=== PATIENT | female | born 1965 | race Caucasian/White ===

== ENCOUNTER 2017-08-01 07:12 | Emergency (ER) | payer MEDICARE, OTHER ==
[~2017-08-01] VITALS: Ht 147.3 cm; Wt 74.8 kg
[~2017-08-01 07:12] MED LIST: ALBU90OI6; ALBU90OI6 INH; AMIT50 PO; AMPDEX10CR; AMPDEX10CR PO; ASPI81CH PO; ATEN25 PO; Amitriptyline100 MG; Aspir 8181 MG; Aspir 8181 MG PO; BENZ100A PO; BUDE6HFA; BUDE6HFA INH; BUDE6HFA PO; BUSP10 PO; BUSP15 PO; CALCA500CH PO; CALCIUM 500 +1 EAC2 PO; CLON.5; CLON.5 PO; CLON1 PO; Crutch1 EACH MISC; DIPH50; DIPH50 PO; ESOM20; GABA800; GABA800 PO; Hair, Skin & N1 EACH; IBUP600 PO; Klonopin0.5 MG PO; LORA1; LORA1 PO; MONT10T; MONT10T PO; MULTI-VITAMIN1 EAC1 PO; MULVITMIND PO; Methylin ER10 MG PO; Naprosyn500 MG PO; Nexium40 MG PO; Norco 5-325 Ta1 EACH PO; OLAN20; OLAN20 MM; Prednisone20 MG PO; QUET200 PO; RIZATRIPTAN10 MG PO; SERT100; SERT100 PO; SIMV40; SIMV40 PO; TIOT18; TOPI100; TOPI100 PO; Zithromax250 MG PO; Zoloft100 MG PO
[2017-08-01] MEDS ORDERED: QUET25 PO (07:35)
[2017-08-01] MEDS ORDERED: Maxalt10 MG PO (07:36)
[2017-08-01] MEDS ORDERED: D3 + K2 Dots 11 EACH PO (07:37)
[2017-08-01] MEDS ORDERED: Advair Hfa 230-12 GM INH (07:38)
== END 2017-08-01 09:10 | disposition left against medical advice (07) ==
LOC: ER 07:12
DX: J44.1 Chronic obstructive pulmonary disease with (acute) exacerbation (principal); J96.91 Respiratory failure, unspecified with hypoxia; F32.9 Major depressive disorder, single episode, unspecified; F41.9 Anxiety disorder, unspecified; Z87.891 Personal history of nicotine dependence; Z88.8 Allergy status to other drugs, medicaments and biological substances; Z91.013 Allergy to seafood; Z79.899 Other long term (current) drug therapy; Z79.51 Long term (current) use of inhaled steroids; Z79.82 Long term (current) use of aspirin
CPT/HCPCS: 36415; 71046; 94762; 96374; 99283; J2930

== ENCOUNTER 2017-12-16 23:29 | Inpatient (IN) | payer MEDICARE, OTHER ==
[~2017-12-16] VITALS: Ht 165.1 cm; Wt 76.1 kg
[~2017-12-16 23:29] MED LIST changes: +Advair Hfa 230-12 GM INH; +D3 + K2 Dots 11 EACH PO; +Macrodantin100 MG PO; +Maxalt10 MG PO; +QUET25 PO; +ZYRTEC10 M1 PO
[2017-12-16 23:50] LABS: Calcium, Ionized (POC) 1.31 mmol/L (1.10-1.46); Chloride (POC) 104 mmol/L (98-108); Creatinine (POC) 0.9 mg/dL (0.6-1.0); Glucose (ISTAT POC) 184 mg/dL (70-99); Potassium (POC) 4.4 mmol/L (3.5-5.5); Sodium (POC) 143 mmol/L (135-148); Total CO2 (POC) 29 mmol/L (21-32)
[2017-12-16 23:53] LABS: BASOPHILS ABSOLUTE AUTO 0.07 K/mm3 (0.00-0.23); BASOPHILS PERCENT AUTO 1 % (0-2); EOSINOPHILS ABSOLUTE AUTO 0.77 K/mm3 (0.00-0.68); EOSINOPHILS PERCENT AUTO 7 % (0-6); Hematocrit 46.2 % (33.0-51.0); Hemoglobin 15.3 g/dL (11.5-16.0); IMMATURE GRAN ABSOLUTE AUTO 0.02 K/mm3 (0.00-0.10); IMMATURE GRAN PERCENT AUTO 0 % (0-1); LYMPHOCYTES PERCENT AUTO 36 % (21-46); MONOCYTES ABSOLUTE AUTO 0.62 K/mm3 (0.16-1.47); MONOCYTES PERCENT AUTO 5 % (4-13); Mean Corpuscular HGB 30.1 pg (26.0-34.0); Mean Corpuscular HGB Conc 33.1 g/dL (31.5-36.5); Mean Corpuscular Volume 91 fL (80-100); Mean Platelet Volume 9.2 fL (9.1-12.4); NEUTROPHILS PERCENT AUTO 51 % (41-73); Platelet Count 313 K/mm3 (150-400); RDW Coefficient Variation 12.1 % (11.7-14.2); RDW Standard Deviation 40.7 fL (35.1-46.3); Red Blood Cell Count 5.08 M/mm3 (3.80-5.20); White Blood Cell Count 11.68 K/mm3 (4.00-11.30)
[2017-12-17 00:04] LABS: International Normalized Ratio 1.01; Prothrombin Time Results 10.4 Sec (9.7-11.5)
[2017-12-17 00:15] LABS: Magnesium, Blood 2.2 mg/dL (1.6-2.4); Troponin I <0.015 ng/mL (0.000-0.040)
[2017-12-17 00:16] LABS: Alanine Aminotransfer (ALT/SGP 28 U/L (12-78); Albumin, Blood 3.7 g/dL (3.4-5.0); Albumin/Globulin Ratio 0.8 (0.8-1.8); Alk Phos 175 U/L (50-136); Anion Gap 6 mmol/L (6-16); Aspartate Aminotrans (AST/SGOT 19 U/L (12-37); Bilirubin, Total 0.2 mg/dL (0.1-1.0); Blood Urea Nitrogen 16 mg/dL (8-24); Bun/Creatinine Ratio 19.1 (12.0-20.0); CO2, Blood 29 mmol/L (21-32); Chloride, Blood 107 mmol/L (98-108); Creatinine, Blood 0.84 mg/dL (0.40-1.00); Globulin, Blood 4.7 g/dL (2.2-4.0); Glomerular Filtration Rate >60 (60-); Glucose, Blood 173 mg/dL (70-99); Potassium, Blood 4.4 mmol/L (3.5-5.5); Sodium, Blood 142 mmol/L (136-145); Total Protein, Blood 8.4 g/dL (6.4-8.2)
[2017-12-17 00:30] LABS: Bicarbonate Venous 21.7 mmol/L (24.0-30.0); PCO2 Venous 75.6 mmHg (38-42); PO2 Venous 75.6 mmHg (38-42); pH Blood Venous 7.17 (7.34-7.37)
[2017-12-17 00:45] LABS: U Amphetamine Screen Not Detected; U Barbituate Screen Not Detected; U Benzodiazapine Screen Not Detected; U Buprenorphine Screen Not Detected; U Cannabinoids Screen DETECTED; U Cocaine Screen Not Detected; U Methadone Screen Not Detected; U Methamphetamine Screen Not Detected; U Opiates Screen Not Detected; U Oxycodone Screen Not Detected; U Phencyclidine Screen Not Detected; U Propoxyphene Screen Not Detected
[2017-12-17 04:05] LABS: BASOPHILS ABSOLUTE AUTO 0.02 K/mm3 (0.00-0.23); BASOPHILS PERCENT AUTO 0 % (0-2); EOSINOPHILS ABSOLUTE AUTO 0.03 K/mm3 (0.00-0.68); EOSINOPHILS PERCENT AUTO 0 % (0-6); Hematocrit 42.5 % (33.0-51.0); Hemoglobin 14.2 g/dL (11.5-16.0); IMMATURE GRAN ABSOLUTE AUTO 0.04 K/mm3 (0.00-0.10); IMMATURE GRAN PERCENT AUTO 0 % (0-1); LYMPHOCYTES PERCENT AUTO 5 % (21-46); MONOCYTES ABSOLUTE AUTO 0.29 K/mm3 (0.16-1.47); MONOCYTES PERCENT AUTO 2 % (4-13); Mean Corpuscular HGB 30.1 pg (26.0-34.0); Mean Corpuscular HGB Conc 33.4 g/dL (31.5-36.5); Mean Corpuscular Volume 90 fL (80-100); Mean Platelet Volume 9.4 fL (9.1-12.4); NEUTROPHILS ABSOLUTE AUTO 11.96 K/mm3 (1.96-9.15); NEUTROPHILS PERCENT AUTO 92 % (41-73); Platelet Count 226 K/mm3 (150-400); RDW Coefficient Variation 12.3 % (11.7-14.2); RDW Standard Deviation 40.3 fL (35.1-46.3); Red Blood Cell Count 4.71 M/mm3 (3.80-5.20); White Blood Cell Count 13.04 K/mm3 (4.00-11.30)
[2017-12-17 04:19] LABS: Anion Gap 9 mmol/L (6-16); Blood Urea Nitrogen 15 mg/dL (8-24); Bun/Creatinine Ratio 16.6 (12.0-20.0); CO2, Blood 25 mmol/L (21-32); Calcium, Blood 8.4 mg/dL (8.5-10.1); Chloride, Blood 108 mmol/L (98-108); Creatinine, Blood 0.91 mg/dL (0.40-1.00); Glomerular Filtration Rate >60 (60-); Glucose, Blood 161 mg/dL (70-99); Potassium, Blood 3.8 mmol/L (3.5-5.5); Sodium, Blood 142 mmol/L (136-145)
[2017-12-17 05:53] LABS: PCO2 Arterial 45.1 mmHg (35-45); PO2 Arterial 77.1 mmHg (80-100); pH Blood Arterial 7.31 (7.35-7.45)
[2017-12-17] MEDS ORDERED: BUDE6HFA INH (16:31)
[2017-12-17] MEDS ORDERED: ALBU90OI INH (16:31)
[2017-12-17] MEDS ORDERED: QUET25 PO (16:32)
[2017-12-17] MEDS ORDERED: TIOT18 INH (16:32)
[2017-12-17] MEDS ORDERED: ESOM20 (16:32)
[2017-12-17] MEDS ORDERED: QUET200 PO (16:33)
[2017-12-17] MEDS ORDERED: AMPDEX10CR PO (16:34)
[2017-12-17] MEDS ORDERED: Neurontin800 MG PO (16:34)
[2017-12-17] MEDS ORDERED: ATEN25 PO (16:35)
[2017-12-17] MEDS ORDERED: CALCIUM 500 MG1 EACH PO (16:35)
[2017-12-17] MEDS ORDERED: DIFL500 PO (16:36)
[2017-12-18 03:47] LABS: BASOPHILS ABSOLUTE AUTO 0.01 K/mm3 (0.00-0.23); BASOPHILS PERCENT AUTO 0 % (0-2); EOSINOPHILS PERCENT AUTO 0 % (0-6); Hematocrit 41.2 % (33.0-51.0); Hemoglobin 13.9 g/dL (11.5-16.0); IMMATURE GRAN ABSOLUTE AUTO 0.04 K/mm3 (0.00-0.10); IMMATURE GRAN PERCENT AUTO 0 % (0-1); LYMPHOCYTES PERCENT AUTO 4 % (21-46); MONOCYTES ABSOLUTE AUTO 0.39 K/mm3 (0.16-1.47); MONOCYTES PERCENT AUTO 3 % (4-13); Mean Corpuscular HGB 30.3 pg (26.0-34.0); Mean Corpuscular HGB Conc 33.7 g/dL (31.5-36.5); Mean Corpuscular Volume 90 fL (80-100); Mean Platelet Volume 9.2 fL (9.1-12.4); NEUTROPHILS ABSOLUTE AUTO 12.48 K/mm3 (1.96-9.15); NEUTROPHILS PERCENT AUTO 92 % (41-73); Platelet Count 236 K/mm3 (150-400); RDW Coefficient Variation 12.6 % (11.7-14.2); RDW Standard Deviation 41.6 fL (35.1-46.3); Red Blood Cell Count 4.58 M/mm3 (3.80-5.20); White Blood Cell Count 13.52 K/mm3 (4.00-11.30)
[2017-12-18 04:10] LABS: Albumin, Blood 2.9 g/dL (3.4-5.0); Anion Gap 8 mmol/L (6-16); Blood Urea Nitrogen 10 mg/dL (8-24); Bun/Creatinine Ratio 14.2 (12.0-20.0); CO2, Blood 24 mmol/L (21-32); Calcium, Blood 8.5 mg/dL (8.5-10.1); Chloride, Blood 115 mmol/L (98-108); Creatinine, Blood 0.71 mg/dL (0.40-1.00); Glomerular Filtration Rate >60 (60-); Glucose, Blood 155 mg/dL (70-99); Potassium, Blood 3.8 mmol/L (3.5-5.5); Sodium, Blood 147 mmol/L (136-145); Troponin I 0.481 ng/mL (0.000-0.040)
[2017-12-19 04:15] LABS: BASOPHILS ABSOLUTE AUTO 0.01 K/mm3 (0.00-0.23); BASOPHILS PERCENT AUTO 0 % (0-2); EOSINOPHILS PERCENT AUTO 0 % (0-6); Hemoglobin 13.5 g/dL (11.5-16.0); IMMATURE GRAN PERCENT AUTO 1 % (0-1); LYMPHOCYTES ABSOLUTE AUTO 0.61 K/mm3 (0.84-5.20); LYMPHOCYTES PERCENT AUTO 5 % (21-46); MONOCYTES ABSOLUTE AUTO 0.29 K/mm3 (0.16-1.47); MONOCYTES PERCENT AUTO 2 % (4-13); Mean Corpuscular HGB 29.9 pg (26.0-34.0); Mean Corpuscular HGB Conc 32.1 g/dL (31.5-36.5); Mean Platelet Volume 10.5 fL (9.1-12.4); NEUTROPHILS ABSOLUTE AUTO 12.06 K/mm3 (1.96-9.15); NEUTROPHILS PERCENT AUTO 92 % (41-73); Platelet Count 193 K/mm3 (150-400); RDW Coefficient Variation 13.4 % (11.7-14.2); Red Blood Cell Count 4.52 M/mm3 (3.80-5.20); White Blood Cell Count 13.07 K/mm3 (4.00-11.30)
[2017-12-19 04:16] LABS: Mean Corpuscular Volume 93 fL (80-100)
[2017-12-19 05:26] LABS: PO2 Arterial 75.8 mmHg (80-100); pH Blood Arterial 7.36 (7.35-7.45)
[2017-12-19 06:15] LABS: Albumin, Blood 2.8 g/dL (3.4-5.0); Anion Gap 8 mmol/L (6-16); Blood Urea Nitrogen 19 mg/dL (8-24); Bun/Creatinine Ratio 25.4 (12.0-20.0); CO2, Blood 22 mmol/L (21-32); Calcium, Blood 8.5 mg/dL (8.5-10.1); Chloride, Blood 118 mmol/L (98-108); Creatinine, Blood 0.75 mg/dL (0.40-1.00); Glomerular Filtration Rate >60 (60-); Glucose, Blood 137 mg/dL (70-99); Magnesium, Blood 2.4 mg/dL (1.6-2.4); Phosphorus, Blood 2.5 mg/dL (2.5-4.9); Potassium, Blood 4.2 mmol/L (3.5-5.5); Sodium, Blood 148 mmol/L (136-145); Troponin I 0.221 ng/mL (0.000-0.040)
[2017-12-19 15:08] LABS: Source, Urine Catheter
[2017-12-19 15:13] LABS: Appearance, Urine Clear (Clear); Bilirubin, Urine Neg (Neg); Blood, Urine 4+ (Neg); Color, Urine Yellow (P-Yellow); Glucose Qualitative, Urine Neg (Neg); Ketones, Urine Neg (Neg); Leukocyte Esterase, Urine Neg (Neg); Nitrite, Urine Neg (Neg); Protein, Urine 1+ (Neg); Urobilinogen, Urine 2+ (Normal)
[2017-12-19 15:24] LABS: Red Blood Cells, Urine 50-100 /hpf (0-2)
[2017-12-19 15:25] LABS: Bacteria Not Seen /hpf; Squamous Epithelial Cells Few /hpf (Few); White Blood Cells, Urine 0-2 /hpf (0-5)
[2017-12-20 04:45] LABS: BASOPHILS PERCENT AUTO 0 % (0-2); EOSINOPHILS PERCENT AUTO 0 % (0-6); Hematocrit 42.5 % (33.0-51.0); Hemoglobin 13.7 g/dL (11.5-16.0); IMMATURE GRAN ABSOLUTE AUTO 0.09 K/mm3 (0.00-0.10); IMMATURE GRAN PERCENT AUTO 1 % (0-1); LYMPHOCYTES ABSOLUTE AUTO 0.63 K/mm3 (0.84-5.20); LYMPHOCYTES PERCENT AUTO 6 % (21-46); MONOCYTES ABSOLUTE AUTO 0.27 K/mm3 (0.16-1.47); MONOCYTES PERCENT AUTO 3 % (4-13); Mean Corpuscular HGB 29.3 pg (26.0-34.0); Mean Corpuscular HGB Conc 32.2 g/dL (31.5-36.5); Mean Corpuscular Volume 91 fL (80-100); Mean Platelet Volume 10.2 fL (9.1-12.4); NEUTROPHILS ABSOLUTE AUTO 9.46 K/mm3 (1.96-9.15); NEUTROPHILS PERCENT AUTO 91 % (41-73); Platelet Count 221 K/mm3 (150-400); RDW Standard Deviation 43.1 fL (35.1-46.3); Red Blood Cell Count 4.67 M/mm3 (3.80-5.20); White Blood Cell Count 10.45 K/mm3 (4.00-11.30)
[2017-12-20 05:10] LABS: Albumin, Blood 2.7 g/dL (3.4-5.0); Anion Gap 10 mmol/L (6-16); Blood Urea Nitrogen 25 mg/dL (8-24); Bun/Creatinine Ratio 35.3 (12.0-20.0); CO2, Blood 23 mmol/L (21-32); Calcium, Blood 8.3 mg/dL (8.5-10.1); Chloride, Blood 112 mmol/L (98-108); Creatinine, Blood 0.71 mg/dL (0.40-1.00); Glomerular Filtration Rate >60 (60-); Glucose, Blood 164 mg/dL (70-99); Phosphorus, Blood 2.6 mg/dL (2.5-4.9); Potassium, Blood 4.1 mmol/L (3.5-5.5); Sodium, Blood 145 mmol/L (136-145)
[2017-12-20 05:11] LABS: PCO2 Arterial 36.6 mmHg (35-45); PO2 Arterial 67.5 mmHg (80-100)
[2017-12-20] MEDS ORDERED: CLON1 PO (14:42)
[2017-12-20] MEDS ORDERED: SEROQUEL PO (14:48)
[2017-12-21 04:00] LABS: BASOPHILS ABSOLUTE AUTO 0.01 K/mm3 (0.00-0.23); BASOPHILS PERCENT AUTO 0 % (0-2); EOSINOPHILS PERCENT AUTO 0 % (0-6); Hematocrit 41.3 % (33.0-51.0); Hemoglobin 13.5 g/dL (11.5-16.0); IMMATURE GRAN ABSOLUTE AUTO 0.08 K/mm3 (0.00-0.10); IMMATURE GRAN PERCENT AUTO 1 % (0-1); LYMPHOCYTES ABSOLUTE AUTO 0.87 K/mm3 (0.84-5.20); LYMPHOCYTES PERCENT AUTO 8 % (21-46); MONOCYTES ABSOLUTE AUTO 0.35 K/mm3 (0.16-1.47); MONOCYTES PERCENT AUTO 3 % (4-13); Mean Corpuscular HGB 29.7 pg (26.0-34.0); Mean Corpuscular HGB Conc 32.7 g/dL (31.5-36.5); Mean Corpuscular Volume 91 fL (80-100); Mean Platelet Volume 9.4 fL (9.1-12.4); NEUTROPHILS ABSOLUTE AUTO 10.31 K/mm3 (1.96-9.15); NEUTROPHILS PERCENT AUTO 89 % (41-73); Platelet Count 246 K/mm3 (150-400); RDW Coefficient Variation 12.7 % (11.7-14.2); RDW Standard Deviation 42.3 fL (35.1-46.3); Red Blood Cell Count 4.54 M/mm3 (3.80-5.20); White Blood Cell Count 11.62 K/mm3 (4.00-11.30)
[2017-12-21 04:17] LABS: Anion Gap 7 mmol/L (6-16); Blood Urea Nitrogen 21 mg/dL (8-24); Bun/Creatinine Ratio 29.7 (12.0-20.0); CO2, Blood 26 mmol/L (21-32); Calcium, Blood 8.4 mg/dL (8.5-10.1); Chloride, Blood 111 mmol/L (98-108); Creatinine, Blood 0.71 mg/dL (0.40-1.00); Glomerular Filtration Rate >60 (60-); Glucose, Blood 124 mg/dL (70-99); Potassium, Blood 3.8 mmol/L (3.5-5.5); Sodium, Blood 144 mmol/L (136-145)
[2017-12-21 05:35] LABS: PCO2 Arterial 33.8 mmHg (35-45); PO2 Arterial 80.9 mmHg (80-100); pH Blood Arterial 7.41 (7.35-7.45)
[2017-12-22] MEDS ORDERED: AMLO5 PO (09:48)
[2017-12-22] MEDS ORDERED: MOME220I INH (09:49)
[2017-12-22] MEDS ORDERED: TOPI100 PO (09:49)
[2017-12-22] MEDS ORDERED: PRED10 PO (10:02)
== END 2017-12-22 10:24 | disposition home or self-care (01) | DRG 208 ==
LOC: ER 23:29 → ICUW 12-17 00:18 → ICUE 12-17 00:18
PROVIDERS: Emergency Medicine; Family Medicine; Internal Medicine Critical Care Medicine
PROC: 0BH17EZ Insertion of Endotracheal Airway into Trachea, Via Natural or Artificial Opening (ICD-10-PCS; principal; 2017-12-17)
PROC: 5A1945Z Respiratory Ventilation, 24-96 Consecutive Hours (ICD-10-PCS; 2017-12-17)
DX: J44.1 Chronic obstructive pulmonary disease with (acute) exacerbation (principal); J96.01 Acute respiratory failure with hypoxia; G92 Toxic encephalopathy; I60.9 Nontraumatic subarachnoid hemorrhage, unspecified; J96.02 Acute respiratory failure with hypercapnia; E87.0 Hyperosmolality and hypernatremia; J45.901 Unspecified asthma with (acute) exacerbation; T42.4X5A Adverse effect of benzodiazepines, initial encounter; Y92.239 Unspecified place in hospital as the place of occurrence of the external cause; R56.9 Unspecified convulsions; I10 Essential (primary) hypertension; F43.10 Post-traumatic stress disorder, unspecified; F60.3 Borderline personality disorder; F32.9 Major depressive disorder, single episode, unspecified; F17.210 Nicotine dependence, cigarettes, uncomplicated
CPT/HCPCS: 31500; 31720; 36415; 36600; 51702; 70450; 71045; 80047; 80048; 80053; 80069; 81001; 82803; 82947; 83605; 83735; 83880; 84145; 84443; 84484; 85014; 85025; 85610; 87040; 87070; 87077; 87147; 87186; 87205; 93005; 93010; 93306; 94002; 94003; 94640; 94760; 96361; 96374; 96375; 97116; 97161; 99291-25; C1751; C9113; G8978; G8979; J0330; J0360; J1650; J1940; J1956; J2001; J2060; J2930; J3010; J3475; J7030; J7040

== ENCOUNTER 2019-03-19 12:02 | Emergency (ER) | payer MEDICARE, OTHER ==
[~2019-03-19] VITALS: Ht 147.3 cm; Wt 77.1 kg
[~2019-03-19 12:02] MED LIST changes: +ALBU4ER; +ALBU90OI; +ALBU90OI INH; +ALBU90OI61; +AMLO5 PO; +CALCIUM 500 MG1 EACH PO; +Cheratussin AC118 ML PO; +DIFL500 PO; +DULERA 200 MCG/13 GM INH; +MOME220I INH; +Neurontin800 MG PO; +PRED10 PO; +Prednisone50 MG PO; +SEROQUEL PO; +TIOT18 INH; +TOPIRAMATE; +ZOLP5
[2019-03-19] MEDS ORDERED: Neurontin 300300 MG PO (16:00)
[2019-03-19] MEDS ORDERED: HYDR1TAB94 PO (16:00)
== END 2019-03-19 16:17 | disposition home or self-care (01) ==
LOC: ER 12:02
DX: M54.16 Radiculopathy, lumbar region (principal); M54.41 Lumbago with sciatica, right side; G89.29 Other chronic pain; F32.9 Major depressive disorder, single episode, unspecified; F41.9 Anxiety disorder, unspecified; F43.10 Post-traumatic stress disorder, unspecified; J44.9 Chronic obstructive pulmonary disease, unspecified; Z88.8 Allergy status to other drugs, medicaments and biological substances; Z91.013 Allergy to seafood; Z79.899 Other long term (current) drug therapy; Z79.82 Long term (current) use of aspirin; Z79.52 Long term (current) use of systemic steroids; Z87.891 Personal history of nicotine dependence
CPT/HCPCS: 99283; A9270-GY

== ENCOUNTER 2019-12-10 15:56 | Emergency (ER) | payer MEDICARE, OTHER ==
[~2019-12-10] VITALS: Ht 147.3 cm; Wt 79.4 kg
[~2019-12-10 15:56] MED LIST changes: +HYDR1TAB94 PO; +Neurontin 300300 MG PO
[2019-12-10] MEDS ORDERED: Norco 5-325 Ta1 EACH PO (17:44)
[2019-12-10] MEDS ORDERED: Crutch1 EACH MISC (17:46)
== END 2019-12-10 18:04 | disposition home or self-care (01) ==
LOC: ER 15:56
DX: S82.65XA Nondisplaced fracture of lateral malleolus of left fibula, initial encounter for closed fracture (principal); F32.9 Major depressive disorder, single episode, unspecified; F41.9 Anxiety disorder, unspecified; J44.9 Chronic obstructive pulmonary disease, unspecified; F43.10 Post-traumatic stress disorder, unspecified; J45.909 Unspecified asthma, uncomplicated; F17.210 Nicotine dependence, cigarettes, uncomplicated; Z91.013 Allergy to seafood; Z88.8 Allergy status to other drugs, medicaments and biological substances; Z88.1 Allergy status to other antibiotic agents; Z79.899 Other long term (current) drug therapy; X50.1XXA Overexertion from prolonged static or awkward postures, initial encounter; Y92.039 Unspecified place in apartment as the place of occurrence of the external cause
CPT/HCPCS: 29515; 73610; 96372-59; 99283-25; J1170; J1885

== ENCOUNTER → 2020-04-02 | Outpatient (CLI) | payer MEDICARE, OTHER ==
[2020-04-07 14:11] LABS: HPV 16 Negative (Negative); HPV 18 Negative (Negative); HPV OTHER HR TYPES Negative (Negative)
== END | disposition home or self-care (01) ==
LOC: PLD 10:40
PROVIDERS: Physician Assistant
DX: Z01.419 Encounter for gynecological examination (general) (routine) without abnormal findings (principal)
CPT/HCPCS: 87624; G0123

== ENCOUNTER 2020-05-14 07:48 | Day surgery (SDC) | payer MEDICARE, OTHER ==
[~2020-05-14] VITALS: Ht 147.3 cm; Wt 84.9 kg
--- NOTE | 2020-05-14 08:25 | NUR ---
Ambulatory in Day Surgery Patient states colon prep results clear. History, Chart, Medications and Allergies reviewed before start of procedure. Patient confirms NPO status and agrees with scheduled surgery.
--- NOTE | 2020-05-14 08:44 | NUR ---
05/14/20 0844 Ja [place]am[place] History, Chart, Medications and Allergies reviewed before start of procedure.MONITOR INTACT WITH CONTINUOUS PULSE OXIMETRY AND INTERMITTENT BP.3-LEAD EKG REVIEWED WITH PHYSICIAN PRIOR TO START OF PROCEDURE.O2 VIA N/C INTACT THROUGHOUT SEDATION/PROCEDURE. PATIENT DETERMINED TO BE ASA APPROPRIATE FOR PROPOFOL SEDATION PRIOR TO START OF PROCEDURE BY DR. EMERSON.
--- NOTE | 2020-05-14 09:32 | NUR ---
Patient up to Ambulate independently. Gait steady. Discharge instructions reviewed with patient. Patient verbalizes understanding. Copy given to patient to take home. Discharged via wheelchair to private car for ride home WITH FRIEND
== END 2020-05-14 22:49 | disposition home or self-care (01) ==
LOC: ORSCMMR 07:48 → ORD 08:30 → ORSCMMR 08:30
PROVIDERS: Internal Medicine Gastroenterology
PROC: 0DBH8ZX Excision of Cecum, Via Natural or Artificial Opening Endoscopic, Diagnostic (ICD-10-PCS; principal; 2020-05-14 08:30)
DX: Z12.11 Encounter for screening for malignant neoplasm of colon (principal); J44.9 Chronic obstructive pulmonary disease, unspecified; E78.00 Pure hypercholesterolemia, unspecified; F32.9 Major depressive disorder, single episode, unspecified; F41.9 Anxiety disorder, unspecified; F43.10 Post-traumatic stress disorder, unspecified; K21.9 Gastro-esophageal reflux disease without esophagitis; Z79.82 Long term (current) use of aspirin; Z79.51 Long term (current) use of inhaled steroids; Z79.899 Other long term (current) drug therapy; Z87.891 Personal history of nicotine dependence
CPT/HCPCS: 88305; J2250; J2704; J7120

== ENCOUNTER → 2021-03-17 | Outpatient (CLI) | payer MEDICARE, OTHER ==
[2021-03-17 19:32] LABS: BASOPHILS ABSOLUTE AUTO 0.08 K/mm3 (0.00-0.23); BASOPHILS PERCENT AUTO 1 % (0-2); EOSINOPHILS ABSOLUTE AUTO 0.23 K/mm3 (0.00-0.68); EOSINOPHILS PERCENT AUTO 2 % (0-6); Hematocrit 46.2 % (33.0-51.0); Hemoglobin 15.2 g/dL (11.5-16.0); IMMATURE GRAN ABSOLUTE AUTO 0.03 K/mm3 (0.00-0.10); IMMATURE GRAN PERCENT AUTO 0 % (0-1); LYMPHOCYTES ABSOLUTE AUTO 2.15 K/mm3 (0.84-5.20); LYMPHOCYTES PERCENT AUTO 22 % (21-46); MONOCYTES ABSOLUTE AUTO 0.54 K/mm3 (0.16-1.47); MONOCYTES PERCENT AUTO 6 % (4-13); Mean Corpuscular HGB 29.3 pg (26.0-34.0); Mean Corpuscular HGB Conc 32.9 g/dL (31.5-36.5); Mean Corpuscular Volume 89 fL (80-100); Mean Platelet Volume 9.7 fL (9.1-12.4); NEUTROPHILS ABSOLUTE AUTO 6.72 K/mm3 (1.96-9.15); NEUTROPHILS PERCENT AUTO 69 % (41-73); Platelet Count 355 K/mm3 (150-400); RDW Standard Deviation 39.7 fL (35.1-46.3); Red Blood Cell Count 5.19 M/mm3 (3.80-5.20); White Blood Cell Count 9.75 K/mm3 (4.00-11.30)
== END | disposition home or self-care (01) ==
LOC: LAB 15:00 → LAB SHORT 15:00
PROVIDERS: Physician Assistant
DX: D72.829 Elevated white blood cell count, unspecified (principal)
CPT/HCPCS: 85025

== ENCOUNTER 2021-04-05 07:33 | Emergency (ER) | payer MEDICARE, OTHER ==
[~2021-04-05] VITALS: Ht 147.3 cm; Wt 83.9 kg
[2021-04-05 08:02] LABS: Source, Urine Clean Catch
[2021-04-05 08:22] LABS: Appearance, Urine Hazy (Clear); Blood, Urine 5+ (Neg); Color, Urine Yellow (P-Yellow); Glucose Qualitative, Urine Neg (Neg); Ketones, Urine 1+ (Neg); Leukocyte Esterase, Urine 1+ (Neg); Nitrite, Urine Neg (Neg); Protein, Urine 3+ (Neg); Urobilinogen, Urine 2+ (Normal)
[2021-04-05 08:44] LABS: Bilirubin, Urine 1+ (Neg)
[2021-04-05 08:45] LABS: Bacteria Few /hpf; Calcium Oxalate Crystals Many /hpf; Mucus Light (0-Heavy); Red Blood Cells, Urine 25-50 /hpf (0-2); Squamous Epithelial Cells Rare /hpf (Few); White Blood Cells, Urine 0-2 /hpf (0-5)
[2021-04-05] MEDS ORDERED: CEFD300 PO (08:54)
[2021-04-05] MEDS ORDERED: Pyridium200 MG PO (08:54)
== END 2021-04-05 08:56 | disposition home or self-care (01) ==
LOC: ER 07:33
PROVIDERS: Emergency Medicine
DX: N39.0 Urinary tract infection, site not specified (principal); J44.9 Chronic obstructive pulmonary disease, unspecified; F17.210 Nicotine dependence, cigarettes, uncomplicated; Z88.8 Allergy status to other drugs, medicaments and biological substances; Z91.013 Allergy to seafood; Z79.899 Other long term (current) drug therapy; Z79.82 Long term (current) use of aspirin
CPT/HCPCS: 81001; 87086; 99283; A9270

== ENCOUNTER 2021-04-28 07:44 | Day surgery (SDC) | payer MEDICARE, OTHER ==
[~2021-04-28] VITALS: Ht 147.3 cm; Wt 82.2 kg
[~2021-04-28 07:44] MED LIST changes: +ALBU2.5V5 INH; -ALBU90OI; +BUDE.25 INH; +CEFD300 PO; +LOPE2C PO; +Lovastatin20 MG PO; +MULVITA PO; +Pyridium200 MG PO; +Triamcinolone A15 GM TOP
--- NOTE | 2021-04-28 08:22 | NUR ---
Ambulatory in Day Surgery History, Chart, Medications and Allergies reviewed before start of procedure. Lungs clear T/O to Auscultation. Patient confirms NPO status and agrees with scheduled surgery. Pre-Op teaching done. Pt verbalizes understanding. Patient States Post-Procedure ride home has been arranged.
--- NOTE | 2021-04-28 10:43 | NUR ---
C/O 4/10 ACHING PAIN TO RIGHT GRION AT SURGICAL SITE. FOLDED 4X4 GAUZE UNDER CLEAR OCCLUSIVE DRSG NOTED TO RIGHT GROIN. NO VISIBLE DRAINAGE, SWELLING, ERYTHEMA OR BRUISING NOTED AROUND SITE. PATIENT EATING SALTINE CRACKERS AND STATES THEY HELPED TAKE AWAY HER MILD NAUSEA SHE WAS EXPERIENCING PRIOR TO EATING THEM. APPLE JUICE BROUGHT TO PATIENT PER REQUEST. BREATHING RA. VSS. WILL MONITOR FOR C/O OF PAIN AND NAUSEA. PLAN FOR RIDE HOME IS HER [id number]'S GRANDMOTHER, KHANG BAINS.
--- NOTE | 2021-04-28 10:55 | NUR ---
TOLERATING CRACKERS AND JUICE WITH NO C/O OF NAUSEA.
--- NOTE | 2021-04-28 11:00 | NUR ---
MEDICATED FOR C/O PAIN TO RIGHT GROIN. WILL MONITOR FOR RELIEF.
--- NOTE | 2021-04-28 11:14 | NUR ---
Discharge instructions reviewed with patient. Patient verbalizes understanding. Copy given to patient to take home.
--- NOTE | 2021-04-28 11:29 | NUR ---
PATIENT STATES HER PAIN LEVEL HASNT CHANGED FROM 410, BUT THAT SHE IS "GOOD" WITH THAT AND DESIRES DISCHARGE HOME. DENIES NAUSEA. VSS. WILL DISCHARGE VIA W/C WHEN RIDE IS HERE.
== END 2021-04-28 11:30 | disposition home or self-care (01) ==
LOC: ORSCMMR 07:44 → ORD 09:00 → ORSCMMR 11:30
PROVIDERS: Surgery
PROC: 0YU50JZ Supplement Right Inguinal Region with Synthetic Substitute, Open Approach (ICD-10-PCS; principal; 2021-04-28 09:00)
DX: K40.90 Unilateral inguinal hernia, without obstruction or gangrene, not specified as recurrent (principal); J45.909 Unspecified asthma, uncomplicated; Z79.899 Other long term (current) drug therapy; Z79.82 Long term (current) use of aspirin; Z87.891 Personal history of nicotine dependence; E66.01 Morbid (severe) obesity due to excess calories; Z68.37 Body mass index [BMI] 37.0-37.9, adult
CPT/HCPCS: A9270; C1781; J0690; J1100; J1885; J2250; J2405; J2704; J2765; J3010; J7120

== ENCOUNTER 2021-05-16 12:41 | Emergency (ER) | payer MEDICARE, OTHER ==
[~2021-05-16] VITALS: Ht 147.3 cm; Wt 81.7 kg
== END 2021-05-16 14:15 | disposition left against medical advice (07) ==
LOC: ER 12:41
DX: R05.9 Cough, unspecified (principal); G40.909 Epilepsy, unspecified, not intractable, without status epilepticus; J44.9 Chronic obstructive pulmonary disease, unspecified; Z79.899 Other long term (current) drug therapy; Z79.82 Long term (current) use of aspirin; Z88.8 Allergy status to other drugs, medicaments and biological substances; Z91.013 Allergy to seafood
CPT/HCPCS: 71046; 99283-25

== ENCOUNTER 2021-06-21 20:36 | Emergency (ER) | payer MEDICARE, OTHER ==
[~2021-06-21] VITALS: Ht 147.3 cm; Wt 79.4 kg
[2021-06-22] MEDS ORDERED: AZIT250 PO (00:30)
[2021-06-22] MEDS ORDERED: PRED20 PO (00:30)
== END 2021-06-22 00:40 | disposition home or self-care (01) ==
LOC: ER 20:36
DX: J44.1 Chronic obstructive pulmonary disease with (acute) exacerbation (principal); J44.0 Chronic obstructive pulmonary disease with (acute) lower respiratory infection; J20.9 Acute bronchitis, unspecified; B34.9 Viral infection, unspecified; Z79.899 Other long term (current) drug therapy; Z87.891 Personal history of nicotine dependence; Z88.8 Allergy status to other drugs, medicaments and biological substances
CPT/HCPCS: 94640; 99284-25; A9270; J7512

== ENCOUNTER 2022-08-08 05:58 | Day surgery (SDC) | payer MEDICARE, OTHER ==
[2022-08-08] VITALS (15 sets, daily range): BP systolic 107–192; BP diastolic 67–112
[~2022-08-08] VITALS: Ht 147.3 cm; Wt 71.4 kg
[~2022-08-08 05:58] MED LIST changes: +ALBU90OI NEB; +AZIT250 PO; -BUSP15 PO; +Macrobid 100 M100 MG PO; +PRED20 PO
[2022-08-08] MEDS ORDERED: SYMBICORT 160-4.6 GM INH (06:39)
--- NOTE | 2022-08-08 13:50 | NUR ---
PEGGY/PT IN TO WORK WITH PATIENT.
--- NOTE | 2022-08-08 14:58 | NUR ---
PATIENT SITTING IN RECLINER WATCHING TV. UNLABORED RESPIRATIONS. CALL LIGHT WITHIN REACH.
--- NOTE | 2022-08-08 19:43 | NUR ---
SHIFT SUMMARY PATIENT POST-OP DAY 0 FROM RIGHT TOTAL HIP, PATIENT HAD GENERAL ANESTHESIA. HAS ONE PERINEO DRESSING ON RIGHT UPPER THIGH, SMALL AMOUNT OF BLOOD IN THE RIGHT LOWER EDGE. DRESSING IS DRY AND INTACT OTHERWISE. PATIENT AMBULATED TO THE RESTROOM, WORKED WITH THERAPY AND SAT UP IN RECLINER. NOW BACK TO BED CALL LIGHT IN REACH.
--- NOTE | 2022-08-08 19:49 | NUR ---
REVIEWED SN DOCUMENTATION.
[2022-08-09 04:12] VITALS: BP 112/67
--- NOTE | 2022-08-09 05:36 | NUR ---
PATIENT REMAINS ALERT AND ORIENTED X4, COOPERATIVE WITH CARE. SLEPT FOR SOME OF THE NIGHT, C/O PAIN, AND TREATED PER MAR. PATIENT IS AMBULATING WITH 1X ASSIST AND FWW, PIV SL, R HIP BANDAGE TRANSPARENT WITH ONE SMALL AREA AREA OF BLOOD THAT HAS REMAINED UNCHANGED THIS SHIFT. VSS, WILL CONT TO MONITOR.
[2022-08-09 05:46] LABS: BASOPHILS ABSOLUTE AUTO 0.02 K/mm3 (0.00-0.23); BASOPHILS PERCENT AUTO 0 % (0-2); EOSINOPHILS ABSOLUTE AUTO 0.11 K/mm3 (0.00-0.68); EOSINOPHILS PERCENT AUTO 1 % (0-6); Hemoglobin 11.8 g/dL (11.5-16.0); IMMATURE GRAN ABSOLUTE AUTO 0.06 K/mm3 (0.00-0.10); IMMATURE GRAN PERCENT AUTO 1 % (0-1); LYMPHOCYTES ABSOLUTE AUTO 1.66 K/mm3 (0.84-5.20); LYMPHOCYTES PERCENT AUTO 15 % (21-46); MONOCYTES ABSOLUTE AUTO 0.82 K/mm3 (0.16-1.47); MONOCYTES PERCENT AUTO 7 % (4-13); Mean Corpuscular HGB 30.9 pg (26.0-34.0); Mean Corpuscular HGB Conc 32.8 g/dL (31.5-36.5); Mean Corpuscular Volume 94 fL (80-100); Mean Platelet Volume 9.3 fL (9.1-12.4); NEUTROPHILS ABSOLUTE AUTO 8.67 K/mm3 (1.96-9.15); NEUTROPHILS PERCENT AUTO 77 % (41-73); Platelet Count 223 K/mm3 (150-400); RDW Coefficient Variation 12.5 % (11.7-14.2); RDW Standard Deviation 43.2 fL (35.1-46.3); Red Blood Cell Count 3.82 M/mm3 (3.80-5.20); White Blood Cell Count 11.34 K/mm3 (4.00-11.30)
[2022-08-09 05:56] LABS: Bun/Creatinine Ratio 14.7 (12.0-20.0); Calcium, Blood 8.3 mg/dL (8.5-10.1); Creatinine, Blood 0.89 mg/dL (0.40-1.00); Magnesium, Blood 2.1 mg/dL (1.6-2.4); Potassium, Blood 3.7 mmol/L (3.5-5.5)
[2022-08-09 07:09] VITALS: BP 107/67
[2022-08-09] MEDS ORDERED: ASPI81CH PO (09:09)
[2022-08-09] MEDS ORDERED: ACET500 PO (09:09)
[2022-08-09] MEDS ORDERED: OXYC5 PO (09:10)
--- NOTE | 2022-08-09 10:06 | NUR ---
discharging REVIEWED DC INSTRUCTIONS W/PT; VERBALIZED UNDERSTANDING. DC'D IV, CATHETER INTACT. PT AWAITING RIDE. CALL LIGHT IN REACH. DENIES ANY NEEDS AT THIS TIME.
--- NOTE | 2022-08-09 11:36 | NUR ---
discharged PT LEFT UNIT IN WC W/POSSESSIONS AND DC PAPERWORK IN HAND TO RIDE WAITING OUTSIDE.
== END 2022-08-09 11:27 | disposition home or self-care (01) ==
LOC: ORSCMMR 05:58 → ORD 07:30 → SURS 11:32 → ORSCMMR 08-09 11:27
PROVIDERS: Orthopaedic Surgery
PROC: 0SR90JA Replacement of Right Hip Joint with Synthetic Substitute, Uncemented, Open Approach (ICD-10-PCS; principal; 2022-08-08 07:30)
DX: M16.11 Unilateral primary osteoarthritis, right hip (principal); Z87.891 Personal history of nicotine dependence; J44.9 Chronic obstructive pulmonary disease, unspecified; E78.5 Hyperlipidemia, unspecified; F41.8 Other specified anxiety disorders; F43.10 Post-traumatic stress disorder, unspecified; G40.909 Epilepsy, unspecified, not intractable, without status epilepticus; K21.9 Gastro-esophageal reflux disease without esophagitis; F31.9 Bipolar disorder, unspecified; Z79.899 Other long term (current) drug therapy; Z79.82 Long term (current) use of aspirin
CPT/HCPCS: 36415; 72170; 80048; 83735; 85025; 94640; 94664; 94760; 97110; 97116; 97162; 97530; A9270; C1713; C1776; J0171; J0690; J0735; J1100; J1885; J2250; J2370; J2405; J2704; J2795; J3010; J7120

== ENCOUNTER 2023-01-29 16:22 | Emergency (ER) | payer MEDICARE, OTHER ==
[~2023-01-29] VITALS: Ht 147.3 cm; Wt 72.6 kg
[~2023-01-29 16:22] MED LIST changes: +ACET500 PO; +OXYC5 PO; +SYMBICORT 160-4.6 GM INH
[2023-01-29 16:30] VITALS: BP 145/96
[2023-01-29 17:44] LABS: Influenza A, PCR NEGATIVE (NEGATIVE); Influenza B, PCR NEGATIVE (NEGATIVE); Resp Syncytial Virus, PCR NEGATIVE (NEGATIVE); SARS-Cov-2 (COVID-19) PCR, MMC NEGATIVE (NEGATIVE)
== END 2023-01-29 17:49 | disposition home or self-care (01) ==
LOC: ER 16:22
PROVIDERS: Student in an Organized Health Care Education/Training Program
DX: J06.9 Acute upper respiratory infection, unspecified (principal); J44.9 Chronic obstructive pulmonary disease, unspecified; Z11.52 Encounter for screening for COVID-19; Z91.041 Radiographic dye allergy status; Z88.8 Allergy status to other drugs, medicaments and biological substances; Z88.5 Allergy status to narcotic agent; Z91.013 Allergy to seafood; Z79.51 Long term (current) use of inhaled steroids; Z79.899 Other long term (current) drug therapy; Z79.82 Long term (current) use of aspirin; Z87.891 Personal history of nicotine dependence
CPT/HCPCS: 0241U; 71046; 99283-25

== ENCOUNTER 2023-02-09 10:39 | Inpatient (IN) | payer MEDICARE, OTHER ==
[~2023-02-09] VITALS: Ht 147.3 cm; Wt 75.7 kg
[~2023-02-09 10:39] MED LIST changes: +LOVA40 PO; -Lovastatin20 MG PO
[2023-02-09 11:21] LABS: BASOPHILS ABSOLUTE AUTO 0.05 K/mm3 (0.00-0.23); BASOPHILS PERCENT AUTO 0 % (0-2); EOSINOPHILS ABSOLUTE AUTO 0.01 K/mm3 (0.00-0.68); EOSINOPHILS PERCENT AUTO 0 % (0-6); Hematocrit 45.7 % (33.0-51.0); Hemoglobin 15.3 g/dL (11.5-16.0); IMMATURE GRAN ABSOLUTE AUTO 0.09 K/mm3 (0.00-0.10); IMMATURE GRAN PERCENT AUTO 1 % (0-1); LYMPHOCYTES ABSOLUTE AUTO 1.18 K/mm3 (0.84-5.20); LYMPHOCYTES PERCENT AUTO 7 % (21-46); MONOCYTES ABSOLUTE AUTO 1.39 K/mm3 (0.16-1.47); MONOCYTES PERCENT AUTO 8 % (4-13); Mean Corpuscular HGB 31.1 pg (26.0-34.0); Mean Corpuscular HGB Conc 33.5 g/dL (31.5-36.5); Mean Corpuscular Volume 93 fL (80-100); Mean Platelet Volume 9.1 fL (9.1-12.4); NEUTROPHILS ABSOLUTE AUTO 14.09 K/mm3 (1.96-9.15); NEUTROPHILS PERCENT AUTO 84 % (41-73); Platelet Count 262 K/mm3 (150-400); RDW Coefficient Variation 12.5 % (11.7-14.2); RDW Standard Deviation 42.9 fL (35.1-46.3); Red Blood Cell Count 4.92 M/mm3 (3.80-5.20); White Blood Cell Count 16.81 K/mm3 (4.00-11.30)
[2023-02-09 11:40] LABS: Albumin, Blood 3.4 g/dL (3.4-5.0); Albumin/Globulin Ratio 0.7 (0.8-1.8); Bilirubin, Total 0.9 mg/dL (0.1-1.0); Bun/Creatinine Ratio 17.6 (12.0-20.0); Calcium, Blood 9.3 mg/dL (8.5-10.1); Creatinine, Blood 0.68 mg/dL (0.40-1.00); Globulin, Blood 4.8 g/dL (2.2-4.0); Potassium, Blood 3.7 mmol/L (3.5-5.5); Total Protein, Blood 8.2 g/dL (6.4-8.2)
[2023-02-09 13:25] LABS: Magnesium, Blood 2.4 mg/dL (1.6-2.4); Phosphorus, Blood 2.2 mg/dL (2.5-4.9)
[2023-02-09 13:46] LABS: International Normalized Ratio 1.03; Prothrombin Time Results 10.8 Sec (9.7-11.5)
[2023-02-09 16:36] LABS: Source, Urine Clean Catch
[2023-02-09 16:44] LABS: Bilirubin, Urine Neg (Neg); Blood, Urine Neg (Neg); Color, Urine Yellow (P-Yellow); Glucose Qualitative, Urine Neg (Neg); Ketones, Urine 3+ (Neg); Leukocyte Esterase, Urine Neg (Neg); Nitrite, Urine Neg (Neg); Protein, Urine 2+ (Neg); Urobilinogen, Urine 2+ (Normal)
[2023-02-09 16:51] LABS: Appearance, Urine Hazy (Clear)
[2023-02-09 16:56] LABS: White Blood Cells, Urine 0-2 /hpf (0-5)
[2023-02-09 16:57] LABS: Bacteria Rare /hpf; Red Blood Cells, Urine 0-2 /hpf (0-2); Squamous Epithelial Cells Rare /hpf (Few)
[2023-02-09 16:59] LABS: Transitional Epithelial Cells Rare /hpf (0-Rare); Yeast/Fungi Urine Rare /hpf
[2023-02-09 19:11] VITALS: BP 125/81
[2023-02-10 03:39] VITALS: BP 112/80
--- NOTE | 2023-02-10 04:12 | NUR ---
PT ARRIVED TO THE UNIT AT 1900. PT A&O x4, VSS, AFEBRILE. PT CALM AND COOPERATIVE WITH CARE PROVIDED. PT SENT TO ED BY HER PCP FOR POSSIBLE INFECTED R HIP. R TOTAL HIP REPLACEMENT IN AUGUST 2022. PT BEDREST AT BEGINNING OF SHIFT, PUREWICK IN PLACE. PT ON RA, RESP RATE EVEN AND UNLABORED. PAIN MANAGED WITH PRN PO PERCOCET AND IV TORADOL. PT SLEPT WELL AFTER GETTING COMFORTABLE IN BED. REDNESS TO R HIP NOTED, AND INCISION SITE APPROXIMATED, CLEAN/DRY/INTACT. 0400: PT REQUESTED TO USE THE BSC, TO STAND UP TO STRETCH HER LEGS FROM LYING IN BED ALL NIGHT. PT AMBULATED TO THE BSC WITH ASSISTANCE FROM 1P USING FWW, AND GB. PT CONTINENT OF B/B. IV IN R HAND RUNNING AT 100 mLs/HR. PT RECEIVING IV ANTIBIOTICS ROCEPHIN AND VANCOMYCIN. CALL LIGHT WITHIN REACH, WCTM.
[2023-02-10 05:11] LABS: BASOPHILS ABSOLUTE AUTO 0.03 K/mm3 (0.00-0.23); BASOPHILS PERCENT AUTO 0 % (0-2); EOSINOPHILS ABSOLUTE AUTO 0.16 K/mm3 (0.00-0.68); EOSINOPHILS PERCENT AUTO 1 % (0-6); Hematocrit 35.7 % (33.0-51.0); Hemoglobin 11.5 g/dL (11.5-16.0); IMMATURE GRAN ABSOLUTE AUTO 0.08 K/mm3 (0.00-0.10); IMMATURE GRAN PERCENT AUTO 1 % (0-1); LYMPHOCYTES ABSOLUTE AUTO 1.49 K/mm3 (0.84-5.20); LYMPHOCYTES PERCENT AUTO 12 % (21-46); MONOCYTES PERCENT AUTO 10 % (4-13); Mean Corpuscular HGB 30.2 pg (26.0-34.0); Mean Corpuscular HGB Conc 32.2 g/dL (31.5-36.5); Mean Corpuscular Volume 94 fL (80-100); Mean Platelet Volume 9.5 fL (9.1-12.4); NEUTROPHILS ABSOLUTE AUTO 9.19 K/mm3 (1.96-9.15); NEUTROPHILS PERCENT AUTO 76 % (41-73); Platelet Count 200 K/mm3 (150-400); RDW Coefficient Variation 12.5 % (11.7-14.2); RDW Standard Deviation 43.4 fL (35.1-46.3); Red Blood Cell Count 3.81 M/mm3 (3.80-5.20); White Blood Cell Count 12.15 K/mm3 (4.00-11.30)
[2023-02-10 05:34] LABS: Bun/Creatinine Ratio 15.1 (12.0-20.0); Calcium, Blood 8.3 mg/dL (8.5-10.1); Creatinine, Blood 0.8 mg/dL (0.40-1.00); Potassium, Blood 3.7 mmol/L (3.5-5.5)
[2023-02-10 07:41] VITALS: BP 120/65
[2023-02-10] MEDS ORDERED: MONT10T PO (11:13)
[2023-02-10 15:53] VITALS: BP 101/59
[2023-02-10 19:19] VITALS: BP 103/65
--- NOTE | 2023-02-10 20:05 | NUR ---
PATIENT REPORTS PAIN IS SLOWLY DECREASING. RIGHT HIP REDNESS DECREASING, NO ACUTE EVENTS DURING SHIFT. PATIENT UP WALKING UP TO 20 FEET WITH WALKER AND STANDBY ASSIST. BED IN LOW POSITION, CALL LIGHT IN REACH. PATIENT CALLS APPROPRIATELY.
[2023-02-11 02:09] VITALS: BP 115/65
--- NOTE | 2023-02-11 03:25 | NUR ---
SHIFT SUMMARY PT A&O X4, COOPERATIVE WITH CARE. PT REPORTS RIGHT HIP PAIN IS DECREASING ALONG WITH THE REDNESS. MEDICATED PER EMAR. PT IS SBA W FWW AMBULATED TO THE BATHROOM NUMEROUS TIMES T/O SHIFT. PT BECOMES SOB WITH EXERCION BUT QUICKLY RECOVERS WITH REST. NS INFUISING @ 100 ML/HR. BED KEPT IN THE LOWEST POSITION WITH CALL LIGHT WITHIN REACH. CALLS APPROPRAITELY. WILL CONTINUE TO MONITOR.
[2023-02-11 05:56] LABS: BASOPHILS ABSOLUTE AUTO 0.04 K/mm3 (0.00-0.23); BASOPHILS PERCENT AUTO 0 % (0-2); EOSINOPHILS ABSOLUTE AUTO 0.24 K/mm3 (0.00-0.68); EOSINOPHILS PERCENT AUTO 3 % (0-6); Hematocrit 33.9 % (33.0-51.0); Hemoglobin 10.8 g/dL (11.5-16.0); IMMATURE GRAN ABSOLUTE AUTO 0.03 K/mm3 (0.00-0.10); IMMATURE GRAN PERCENT AUTO 0 % (0-1); LYMPHOCYTES ABSOLUTE AUTO 1.74 K/mm3 (0.84-5.20); LYMPHOCYTES PERCENT AUTO 18 % (21-46); MONOCYTES PERCENT AUTO 11 % (4-13); Mean Corpuscular HGB 30.8 pg (26.0-34.0); Mean Corpuscular HGB Conc 31.9 g/dL (31.5-36.5); Mean Corpuscular Volume 97 fL (80-100); Mean Platelet Volume 10.1 fL (9.1-12.4); NEUTROPHILS ABSOLUTE AUTO 6.43 K/mm3 (1.96-9.15); NEUTROPHILS PERCENT AUTO 68 % (41-73); Platelet Count 186 K/mm3 (150-400); RDW Coefficient Variation 12.5 % (11.7-14.2); RDW Standard Deviation 44.3 fL (35.1-46.3); Red Blood Cell Count 3.51 M/mm3 (3.80-5.20); White Blood Cell Count 9.48 K/mm3 (4.00-11.30)
[2023-02-11 06:34] LABS: Bun/Creatinine Ratio 18.8 (12.0-20.0); Calcium, Blood 8.6 mg/dL (8.5-10.1); Creatinine, Blood 0.8 mg/dL (0.40-1.00); Potassium, Blood 3.9 mmol/L (3.5-5.5)
[2023-02-11 07:25] VITALS: BP 124/70
[2023-02-11 15:53] VITALS: BP 105/83
--- NOTE | 2023-02-11 18:26 | NUR ---
SHIFT SUMMARY PT AOX4, SBA WITH THE FWW. SHE GOT A SHOWER TODAY. MEDICATED FOR PAIN PER THE EMAR. CALLS WELL AND MAKES HER NEEDS KNOWN. POSSIBLE DC TOMORROW ON PO ABX. CALL LIGHT WITHIN REACH, BED IN THE LOWEST POSITION. WILL REPORT TO ONCOMING NURSE.
[2023-02-11 19:21] VITALS: BP 127/64
[2023-02-12 03:28] VITALS: BP 100/72
--- NOTE | 2023-02-12 03:38 | NUR ---
SHIFT SUMMARY PT A&O X4, COOPERATIVE WITH CARE. PT STATES SHE SUFFERS FROM INSOMNIA AND HAS NOT SLEPT MUCH TONIGHT. COMPLAINS OF RIGHT HIP PAIN MEDICATED PER EMAR. PT SBA WITH FWW TO BATHROOM AND AMBULATED TWICE THIS SHIFT DOWN THE CRAIG APPROX 50 FEET AND BACK. NS INFUISING AT 100 ML/HR. PT LIKELY TO DISCHARGE HOME TODAY WITH PO ABX. BED KEPT IN LOWEST POSITION WITH CALL LIGHT WITHIN REACH. PT CALLS APPROPRIATELY. WILL CONTINUE TO MONITOR.
[2023-02-12 04:39] VITALS: BP 112/71
[2023-02-12 07:21] VITALS: BP 136/85
[2023-02-12] MEDS ORDERED: VISBIOME 112.51 EACH PO (11:49)
[2023-02-12] MEDS ORDERED: CEFD300 PO (11:50)
[2023-02-12] MEDS ORDERED: TIZA4 PO (11:51)
[2023-02-12] MEDS ORDERED: HYDROCODONE-AC1 EA10 PO (11:53)
--- NOTE | 2023-02-12 13:20 | NUR ---
DISCHARGE SUMMARY PATIENT DISCHARGED THIS SHIFT WITH FAMILY TO DRIVE. MEDS FAXED TO [facility], HARD SCRIPT SENT WITH PATIENT FOR OSCEOLA. DISCHARGE PACKET AND EDUCATION PROVIDED VERBALLY AND IN WRITTING, QUESTIONS ANSWERED, VERBALIZED UNDERSTANDING AND PROVIDED TEACHBACK. IV REMOVED PRIOR WITH NO COMPLICATIONS.
== END 2023-02-12 12:41 | disposition home or self-care (01) | DRG 871 ==
LOC: ER 10:39 → MEDS 10:40
PROVIDERS: Internal Medicine; Nurse Practitioner Acute Care; Physician Assistant; Student in an Organized Health Care Education/Training Program; ADMIT Hospitalist
DX: A41.9 Sepsis, unspecified organism (principal); J18.9 Pneumonia, unspecified organism; L03.115 Cellulitis of right lower limb; M00.9 Pyogenic arthritis, unspecified; J44.9 Chronic obstructive pulmonary disease, unspecified; F41.9 Anxiety disorder, unspecified; G40.909 Epilepsy, unspecified, not intractable, without status epilepticus; F31.9 Bipolar disorder, unspecified; G43.909 Migraine, unspecified, not intractable, without status migrainosus; E78.5 Hyperlipidemia, unspecified; F43.10 Post-traumatic stress disorder, unspecified; Z90.49 Acquired absence of other specified parts of digestive tract; Z98.890 Other specified postprocedural states; Z87.891 Personal history of nicotine dependence; Z79.52 Long term (current) use of systemic steroids; Z79.891 Long term (current) use of opiate analgesic; Z79.82 Long term (current) use of aspirin; Z88.8 Allergy status to other drugs, medicaments and biological substances; Z88.5 Allergy status to narcotic agent; Z91.013 Allergy to seafood
CPT/HCPCS: 36415; 51701; 71045; 73701; 80048; 80053; 81001; 83605; 83735; 84100; 84145; 85025; 85610; 85651; 86140; 87040; 87449; 94640; 94664; 94760; 96361; 96365-59; 96366; 96367; 96375-59; 96376-59; 97110; 97116; 97162; 97530; 99285-25; A9270; J0456; J0696; J1170; J1650; J1885; J3370; J7030; J7050; Q9967

== ENCOUNTER 2023-02-13 10:21 | Emergency (ER) | payer MEDICARE, OTHER ==
[~2023-02-13] VITALS: Ht 147.3 cm; Wt 75.5 kg
[~2023-02-13 10:21] MED LIST changes: +HYDROCODONE-AC1 EA10 PO; +TIZA4 PO; +VISBIOME 112.51 EACH PO
[2023-02-13 13:02] LABS: BASOPHILS ABSOLUTE AUTO 0.05 K/mm3 (0.00-0.23); BASOPHILS PERCENT AUTO 1 % (0-2); EOSINOPHILS PERCENT AUTO 3 % (0-6); Hematocrit 36.5 % (33.0-51.0); Hemoglobin 12.1 g/dL (11.5-16.0); IMMATURE GRAN ABSOLUTE AUTO 0.03 K/mm3 (0.00-0.10); IMMATURE GRAN PERCENT AUTO 0 % (0-1); LYMPHOCYTES ABSOLUTE AUTO 1.43 K/mm3 (0.84-5.20); LYMPHOCYTES PERCENT AUTO 19 % (21-46); MONOCYTES ABSOLUTE AUTO 0.46 K/mm3 (0.16-1.47); MONOCYTES PERCENT AUTO 6 % (4-13); Mean Corpuscular HGB 30.3 pg (26.0-34.0); Mean Corpuscular HGB Conc 33.2 g/dL (31.5-36.5); Mean Corpuscular Volume 92 fL (80-100); NEUTROPHILS ABSOLUTE AUTO 5.49 K/mm3 (1.96-9.15); NEUTROPHILS PERCENT AUTO 72 % (41-73); Platelet Count 318 K/mm3 (150-400); RDW Coefficient Variation 12.5 % (11.7-14.2); RDW Standard Deviation 41.6 fL (35.1-46.3); Red Blood Cell Count 3.99 M/mm3 (3.80-5.20); White Blood Cell Count 7.66 K/mm3 (4.00-11.30)
[2023-02-13 13:23] LABS: Albumin/Globulin Ratio 0.6 (0.8-1.8); Bilirubin, Total 0.5 mg/dL (0.1-1.0); Bun/Creatinine Ratio 11.1 (12.0-20.0); Calcium, Blood 9.7 mg/dL (8.5-10.1); Creatinine, Blood 0.72 mg/dL (0.40-1.00); Potassium, Blood 3.6 mmol/L (3.5-5.5)
[2023-02-13 19:34] VITALS: BP 147/97
== END 2023-02-13 19:57 | disposition home or self-care (01) ==
LOC: ER 10:21
PROVIDERS: Family Medicine
DX: M25.551 Pain in right hip (principal); J44.9 Chronic obstructive pulmonary disease, unspecified; Z86.19 Personal history of other infectious and parasitic diseases; Z91.041 Radiographic dye allergy status; Z88.8 Allergy status to other drugs, medicaments and biological substances; Z88.5 Allergy status to narcotic agent; Z91.013 Allergy to seafood; Z79.51 Long term (current) use of inhaled steroids; Z79.899 Other long term (current) drug therapy; Z87.891 Personal history of nicotine dependence
CPT/HCPCS: 36415; 73721; 74177; 80053; 85025; 85379; 93971; 96365; 96375; 96376; 99284-25; A9270; J0696; J1885; J3010; Q9967

== ENCOUNTER 2024-03-03 16:57 | Emergency (ER) | payer MEDICARE, OTHER ==
[~2024-03-03] VITALS: Ht 147.3 cm; Wt 70.3 kg
[2024-03-03 18:05] LABS: BASOPHILS ABSOLUTE AUTO 0.06 K/mm3 (0.00-0.23); BASOPHILS PERCENT AUTO 1 % (0-2); EOSINOPHILS ABSOLUTE AUTO 0.04 K/mm3 (0.00-0.68); EOSINOPHILS PERCENT AUTO 0 % (0-6); Hematocrit 50.4 % (33.0-51.0); Hemoglobin 16.7 g/dL (11.5-16.0); IMMATURE GRAN ABSOLUTE AUTO 0.06 K/mm3 (0.00-0.10); IMMATURE GRAN PERCENT AUTO 1 % (0-1); LYMPHOCYTES ABSOLUTE AUTO 1.56 K/mm3 (0.84-5.20); LYMPHOCYTES PERCENT AUTO 12 % (21-46); MONOCYTES ABSOLUTE AUTO 0.99 K/mm3 (0.16-1.47); MONOCYTES PERCENT AUTO 8 % (4-13); Mean Corpuscular HGB 30.5 pg (26.0-34.0); Mean Corpuscular HGB Conc 33.1 g/dL (31.5-36.5); Mean Corpuscular Volume 92 fL (80-100); Mean Platelet Volume 9.2 fL (9.1-12.4); NEUTROPHILS ABSOLUTE AUTO 10.56 K/mm3 (1.96-9.15); NEUTROPHILS PERCENT AUTO 79 % (41-73); Platelet Count 295 K/mm3 (150-400); RDW Coefficient Variation 13.2 % (11.7-14.2); RDW Standard Deviation 44.9 fL (35.1-46.3); Red Blood Cell Count 5.47 M/mm3 (3.80-5.20); White Blood Cell Count 13.27 K/mm3 (4.00-11.30)
[2024-03-03 18:19] LABS: Albumin, Blood 3.7 g/dL (3.4-5.0); Albumin/Globulin Ratio 0.8 (0.8-1.8); Bilirubin, Total 0.6 mg/dL (0.1-1.0); Bun/Creatinine Ratio 12.3 (12.0-20.0); Calcium, Blood 9.4 mg/dL (8.5-10.1); Creatinine, Blood 1.38 mg/dL (0.40-1.00); Globulin, Blood 4.7 g/dL (2.2-4.0); Potassium, Blood 3.9 mmol/L (3.5-5.5); Total Protein, Blood 8.4 g/dL (6.4-8.2)
[2024-03-03 21:27] LABS: Source, Urine Clean Catch
[2024-03-03 21:34] LABS: Appearance, Urine Clear (Clear); Bilirubin, Urine Neg (Neg); Blood, Urine 4+ (Neg); Color, Urine Yellow (P-Yellow); Glucose Qualitative, Urine Neg (Neg); Ketones, Urine 2+ (Neg); Leukocyte Esterase, Urine 1+ (Neg); Nitrite, Urine Neg (Neg); Protein, Urine 3+ (Neg); Urobilinogen, Urine 1+ (Normal); pH, Urine 6.5 (5.0-8.0)
[2024-03-03] MEDS ORDERED: Tamsulosin HCl 0.4 MG Cap PO ONE (21:35)
[2024-03-03 21:47] LABS: Amorphous Light (0-Heavy); Bacteria Few /hpf; Red Blood Cells, Urine 0-2 /hpf (0-2); Squamous Epithelial Cells Not Seen /hpf (Few)
[2024-03-03] MEDS ORDERED: Percocet 5-3251 EACH PO (23:31)
[2024-03-03] MEDS ORDERED: TAMS.4ER PO (23:31)
[2024-03-03] MEDS ORDERED: OxyCODONE 5 mg/Acetamin 325 mg TABLET PO ONE (23:35)
[2024-03-04] VITALS: BP 143/85
== END 2024-03-04 00:20 | disposition home or self-care (01) ==
LOC: ER 16:57
PROVIDERS: Physician Assistant
DX: N13.2 Hydronephrosis with renal and ureteral calculous obstruction (principal); F43.10 Post-traumatic stress disorder, unspecified; J44.89 Other specified chronic obstructive pulmonary disease; Z87.891 Personal history of nicotine dependence; Z79.51 Long term (current) use of inhaled steroids; Z79.899 Other long term (current) drug therapy; Z91.041 Radiographic dye allergy status; Z88.5 Allergy status to narcotic agent; Z91.013 Allergy to seafood
CPT/HCPCS: 74176; 80053; 81001; 83690; 85025; 99284-25; A9270

== ENCOUNTER 2024-08-13 10:21 | Emergency (ER) | payer MEDICARE, OTHER ==
[~2024-08-13] VITALS: Ht 147.3 cm; Wt 70.3 kg
[~2024-08-13 10:21] MED LIST changes: +Percocet 5-3251 EACH PO; +TAMS.4ER PO
[2024-08-13 10:51] VITALS: BP 162/90
== END 2024-08-13 12:17 | disposition home or self-care (01) ==
LOC: ER 10:21
DX: L73.9 Follicular disorder, unspecified (principal); F43.10 Post-traumatic stress disorder, unspecified; Z91.041 Radiographic dye allergy status; Z88.8 Allergy status to other drugs, medicaments and biological substances; Z79.899 Other long term (current) drug therapy; Z88.5 Allergy status to narcotic agent; Z91.013 Allergy to seafood; Z87.891 Personal history of nicotine dependence; Z59.89 Other problems related to housing and economic circumstances
CPT/HCPCS: 99282

== ENCOUNTER 2024-10-28 06:20 | Day surgery (SDC) | payer MEDICARE, OTHER ==
[~2024-10-28] VITALS: Ht 147.3 cm; Wt 71.2 kg
[~2024-10-28 06:20] MED LIST changes: +Lidocaine 1%-Epineph 1:100000 20 ML MDV ONE
[2024-10-28] MEDS ORDERED: CeFAZolin Sodium 2,000 MG VIAL ONE (06:28)
[2024-10-28] MEDS ORDERED: BREYNA 160-4.10.3 GM (06:44)
[2024-10-28] MEDS ORDERED: RISP.25 PO (06:45)
[2024-10-28] MEDS ORDERED: HYDPAM25 PO (06:46)
[2024-10-28] MEDS ORDERED: TEMA7.5 PO (06:46)
[2024-10-28] MEDS ORDERED: NS 500 ML IV ONE (06:50)
--- NOTE | 2024-10-28 07:13 | NUR ---
10/28/24 0713 Ivory Shelby 6ML LIDOCAINE 1% WITH EPI 1:100,000 INJECTED AT THE OP SITE BY DR LI. PT TOLERATED INJECTION WELL.
--- NOTE | 2024-10-28 08:02 | NUR ---
10/28/24 0802 MUNIRA CHIRINOS BROUGHT IN EXTRA HELP PT BECAME COMBATIVE/CONFUSED WHEN WAKING. TRYING TO REMOVE IV. PANICKING. TERESA WALTERS AND JESUSITA TECH IN TO HELP CALM PT.
[2024-10-28 08:04] VITALS: BP 112/67
[2024-10-28] MEDS ORDERED: Lidocaine 1%-Epineph 1:100000 20 ML MDV ONE (08:13)
== END 2024-10-28 08:25 | disposition home or self-care (01) ==
LOC: ORSCSDS 06:20
PROVIDERS: Orthopaedic Surgery
PROC: 01N54ZZ Release Median Nerve, Percutaneous Endoscopic Approach (ICD-10-PCS; principal; 2024-10-28 07:45)
DX: G56.03 Carpal tunnel syndrome, bilateral upper limbs (principal); J44.89 Other specified chronic obstructive pulmonary disease; F31.9 Bipolar disorder, unspecified; K21.9 Gastro-esophageal reflux disease without esophagitis; E78.5 Hyperlipidemia, unspecified; F41.9 Anxiety disorder, unspecified; J44.9 Chronic obstructive pulmonary disease, unspecified; F43.10 Post-traumatic stress disorder, unspecified; Z87.891 Personal history of nicotine dependence; E66.9 Obesity, unspecified; Z68.32 Body mass index [BMI] 32.0-32.9, adult; Z79.82 Long term (current) use of aspirin; Z79.899 Other long term (current) drug therapy
CPT/HCPCS: J0690; J2704; J7040